=== PATIENT | male | born 1995 ===

== ENCOUNTER 2019-06-14 06:53 | Emergency (ER) | payer OTHER ==
[~2019-06-14] VITALS: Ht 175.3 cm; Wt 90.7 kg
[~2019-06-14 06:53] MED LIST: LOTRISONE CREAM45 GM TOP
[2019-06-18] MEDS ORDERED: NORFLEX100MG PO (16:17)
== END 2019-06-14 13:07 | disposition home or self-care (01) ==
LOC: ER 06:53
DX: M54.5 Low back pain (principal)

== ENCOUNTER → 2019-06-15 | Outpatient (CLI) | payer OTHER ==
[~2019-06-15] MED LIST changes: +NORFLEX100MG PO
== END | disposition home or self-care (01) ==
LOC: MRI 08:10
DX: M54.89 Other dorsalgia (principal); M54.5 Low back pain
CPT/HCPCS: 72146

== ENCOUNTER → 2020-04-17 08:22 | Outpatient (CLI) | payer OTHER | END | disposition home or self-care (01) | LOC: LAB 08:22 | PROVIDERS: ATTEND Internal Medicine Gastroenterology | DX: Z20.828 Contact with and (suspected) exposure to other viral communicable diseases (principal) ==

== ENCOUNTER 2020-04-28 09:08 | Outpatient (CLI) | payer OTHER | END 2020-04-28 15:00 | disposition home or self-care (01) | LOC: LAB 09:08 | DX: Z20.828 Contact with and (suspected) exposure to other viral communicable diseases (principal); E55.9 Vitamin D deficiency, unspecified; M35.9 Systemic involvement of connective tissue, unspecified; R73.03 Prediabetes; N39.0 Urinary tract infection, site not specified ==

== ENCOUNTER 2020-07-29 16:15 | Emergency (ER) | payer OTHER ==
[~2020-07-29] VITALS: Ht 175.3 cm; Wt 90.3 kg
[2020-07-29] MEDS ORDERED: ADDERALL 10 MG10 MG PO (16:23)
== END 2020-07-29 21:22 | disposition home or self-care (01) ==
LOC: ER 16:15
DX: K29.70 Gastritis, unspecified, without bleeding (principal)

== ENCOUNTER 2020-08-25 10:15 | Outpatient (CLI) | payer OTHER ==
[~2020-08-25 10:15] MED LIST changes: +ADDERALL 10 MG10 MG PO
== END 2020-08-25 15:47 | disposition home or self-care (01) ==
LOC: LAB 10:15
DX: Z20.828 Contact with and (suspected) exposure to other viral communicable diseases (principal)

== ENCOUNTER → 2021-05-22 | Outpatient (CLI) | payer OTHER | END | disposition home or self-care (01) | LOC: PPH VACUNA 08:00 | PROVIDERS: ATTEND Emergency Medicine Pediatric Emergency Medicine | DX: Z23 Encounter for immunization (principal) ==